=== PATIENT | male | born 1970 | race Caucasian/White ===

== ENCOUNTER 2017-06-19 15:59 | Emergency (ER) | payer MEDICAID ==
[2017-06-19 16:07] VITALS: PULSE 95; RESP 16; TEMP 99.2; O2SAT 95
--- NOTE | 2017-06-19 16:25 | C.PDOC ---
History Of Present Illness 46 YO male w/o significant PMHx come in f r evaluation of Left foot pain for past 5 days "after pushed some heavy object with my foot". Pt reports pain as aching over the side of left foot, worse with ambulation. Admits previous hx of left foot injury " more than 10 yrs ago". Otherwise, pt denies direct trauma or injury, foot deformity, skin changes, weakness, sensory or vascular deficit to Left foot. On triage HTN noted, pt denies previous hx of HTN, pt sts, " just drove 160 ml to get here in really bad weather". Otherwise, pt denies headache, dizziness, visual changes, focal deficits, CP, SOB, dyspnea, diaphoresis, palpitation, denies any other active complaints. Ambulate to ED for evaluation, not in nay apparent distress. Time Seen by Provider: 06/19/17 16:10 Chief Complaint (Nursing): Lower Extremity Problem/Injury History Per: Patient Past Medical History Reviewed: Historical Data, Nursing Documentation, Vital Signs Vital Signs: Last Vital Signs Temp 99.2 F 06/19/17 16:05 Pulse 95 H 06/19/17 16:05 Resp 16 06/19/17 16:05 BP 165/102 H 06/19/17 16:05 Pulse Ox 95 06/19/17 16:25 - Medical History PMH: No Chronic Diseases Surgical History: No Surg Hx Family History: States: No Known Family Hx - Social History Hx Tobacco Use: No Hx Alcohol Use: Yes Hx Substance Use: No - Immunization History Hx Tetanus Toxoid Vaccination: No Hx Influenza Vaccination: No Hx Pneumococcal Vaccination: No Review Of Systems Except As Marked, All Systems Reviewed And Found Negative. Constitutional: Negative for: Fever, Chills Eyes: Negative for: Vision Change Cardiovascular: Negative for: Chest Pain, Palpitations, Edema, Light Headedness Respiratory: Negative for: Cough, Shortness of Breath, SOB with Excertion, Wheezing Gastrointestinal: Negative for: Nausea, Vomiting Musculoskeletal: Positive for: Foot Pain Neurological: Negative for: Weakness, Numbness, Headache, Dizziness Physical Exam - Physical Exam Appears: Well, Non-toxic, No Acute Distress Skin: Normal Color, Warm, No Rash Eye(s): bilateral: PERRL Throat: No Erythema Neck: Supple Cardiovascular: Rhythm Regular, No Friction Rub, No Murmur, No JVD Respiratory: No Decreased Breath Sounds, No Accessory Muscle Use, No Stridor, No Wheezing Gastrointestinal/Abdominal: Soft, No Tenderness Back: No Vertebral Tenderness Extremity: Normal ROM (Left foot), Tenderness (mild tenderness over medial and lateral aspect left foot. No edmea, no erythema, no palpable deformity.), No Pedal Edema, No Calf Tenderness (left), Capillary Refill (less than 2sec to left foot), No Deformity, No Swelling Neurological/Psych: Oriented x3, Normal Speech, Cerebellar Signs, Normal Motor, Normal Sensation, Normal Reflexes ED Course And Treatment O2 Sat by Pulse Oximetry: 95 Pulse Ox Interpretation: Normal - Other Rad Letf foot X-Ray: Interpreted by Me, Viewed By Me Interpretation: (+)osteophite noted. no acute fx or dislocation Progress Note: On re-eval, pt is afebrile, hemodynamicaly stable. Non-toxic. Ambulatory in ED with stable gait. Neck: Supple, (-) JVD. Lungs: CTA B/L, BS equal B/L. CVS: (+)S1S2, reg. B/L LEs: no edema, left foot; exam c/w foot sprain/arthralgia. neuorlogicaly intact. Xray of foot review (-) acute fx or dislocation. Pt was advised about noted HTN. Was advised to repeat BP today and if high, start on given medication. Advised on foot F/U. ref. to F/u with PMD to repeat HTN and podiatry for further evaluation of left foot. return to Ed if any worsening or new changes. Disposition Counseled Patient/Family Regarding: Studies Performed, Diagnosis, Need For Followup, Rx Given - Disposition Referrals: [facility] [Outside] Podiatry Clinic [Outside] Disposition: HOME/ ROUTINE Disposition Time: 16:30 Condition: STABLE Additional Instructions: LIGHT DUTY TO LEFT FOOT RICE-REST, ICE, COMPRESSION, ELEVATION TAKE MEDICATION PRESCRIBED FOLLOW UP WITH MEDICAL RECORDS LIBRARY PROFESSOR IN 2-3 DAYS FOR RE-EVALUATION AT .PODIATRY CLINIC AT [facility] OR [facility] ON MONDAYS RETURN TO ED IF ANY WORSENING OR NEW CHANGES. Prescriptions: Hydrochlorothiazide [Microzide] 12.5 mg PO DAILY #14 cap Ibuprofen [Motrin Tab] 600 mg PO Q6 #20 tab traMADol [Ultram] 50 mg PO TID #7 tab Instructions: Foot Sprain (ED), Hypertension (ED) Forms: [employer] (Syriac) - Clinical Impression Clinical Impression: Foot sprain, Arthralgia, Hypertension
[2017-06-19 17:02] VITALS: BP 167/103
--- NOTE | 2017-06-19 17:04 | RAD ---
Left foot three views History: Pain. Comparison: None available. Findings: Curvilinear radiopaque density adjacent to the lateral aspect of the cuboid which may represent hypertrophic changes of an accessory ossicle. Clinical correlation to site of pain. Mild dorsal calcaneal spurring. If pain persists, consider MRI. Impression: Curvilinear radiopaque density adjacent to the lateral aspect of the cuboid which may represent hypertrophic changes of an accessory ossicle. Clinical correlation to site of pain. Mild dorsal calcaneal spurring. If pain persists, consider MRI.
== END 2017-06-19 17:09 | disposition home or self-care (01) ==
LOC: C.ER 15:59
DX: S93.602A Unspecified sprain of left foot, initial encounter (principal); X58.XXXA Exposure to other specified factors, initial encounter; M25.572 Pain in left ankle and joints of left foot; I10 Essential (primary) hypertension

== ENCOUNTER 2017-10-19 13:15 | Emergency (ER) | payer MEDICAID ==
--- NOTE | 2017-10-19 14:38 | C.PDOC ---
History Of Present Illness 47 year old male presents to the ER complaining of right knee pain, onset Tuesday. States he was trying to lose weight and exercise more, particularly with running and cycling activities. Reports recently he did 3 hours of running. Patient denies any lower leg pain or swelling. Denies trauma. Applying Bengay and hot water to the area. Time Seen by Provider: 10/19/17 14:29 Chief Complaint (Nursing): Lower Extremity Problem/Injury History Per: Patient History/Exam Limitations: no limitations Onset/Duration Of Symptoms: Days (x5) Current Symptoms Are (Timing): Still Present Past Medical History Reviewed: Historical Data, Nursing Documentation, Vital Signs Vital Signs: Last Vital Signs Temp 97.9 F 10/19/17 15:39 Pulse 72 10/19/17 15:39 Resp 18 10/19/17 15:39 BP 161/91 H 10/19/17 15:39 Pulse Ox 97 10/19/17 15:39 Surgical History: No Surg Hx Family History: States: No Known Family Hx - Social History Hx Tobacco Use: No Hx Alcohol Use: Yes Hx Substance Use: No - Immunization History Hx Tetanus Toxoid Vaccination: No Hx Influenza Vaccination: No Hx Pneumococcal Vaccination: No Review Of Systems Except As Marked, All Systems Reviewed And Found Negative. Musculoskeletal: Negative for: Other (Right knee pain) Skin: Negative for: Bruising, Other (swelling) Neurological: Negative for: Weakness, Numbness, Other (tingling) Physical Exam - Physical Exam Appears: Non-toxic, No Acute Distress Skin: Warm, Dry Head: Atraumatic, Normacephalic Eye(s): bilateral: Normal Inspection, EOMI Nose: Normal Oral Mucosa: Moist Neck: Normal ROM, Supple Chest: Symmetrical Respiratory: No Accessory Muscle Use, Other (speaking full sentences) Extremity: Normal ROM, Tenderness (to the distal right knee), No Calf Tenderness , No Deformity, No Swelling, Other ((+) mild erythema 3cm in diameter to the anterior area- pt notes its from the benajay and hot water) Extremity: Bilateral: Normal ROM Pulses: Left Dorsalis Pedis: Normal, Right Dorsalis Pedis: Normal Neurological/Psych: Oriented x3, Normal Speech, No Other (focal deficits) ED Course And Treatment O2 Sat by Pulse Oximetry: 98 (RA) Pulse Ox Interpretation: Normal Progress Note: Given 550 mg Naproxen in the ED. Knee brace applied by hvac controls technician. Discussed no XR at the time since trauma. Discussed with pt sign and sdymptoms for infection - pt notes "its not an infection." Will d/c with rx for Naproxen and Cephalexin- instructed to start abx in redness persists. Also discsused elevated BP, denies chest pain, headache , dizziness, no visual changes. Instructed to get repeat BP and discussed risks of untreated BP. Advised to follow up with PMD and ortho in 1-2 days. Disposition Counseled Patient/Family Regarding: Diagnosis, Need For Followup, Rx Given - Disposition Referrals: Bud Reeder III, MD [Staff Provider] - Disposition: HOME/ ROUTINE Disposition Time: 14:57 Condition: STABLE Additional Instructions: Rest and ice the area. Follow up with bone doctor in 1-2 days. Return to ER if symptoms persist or worsen. Prescriptions: Cephalexin [cephalexin] 500 mg PO TID #21 cap Naproxen [Naprosyn] 1 tab PO BID PRN #20 tab PRN Reason: Pain Instructions: Knee Pain (DC) Forms: [employer] Connect (Slovak) - POA Present On Arrival: None - Clinical Impression Clinical Impression: Knee pain - PA / RISK LEAD / Resident Statement MD/DO has reviewed & agrees with the documentation as recorded. - Scribe Statement The provider has reviewed the documentation as recorded by the Scribe (Leela Sheffield) All medical record entries made by the Scribe were at my direction and personally dictated by me. I have reviewed the chart and agree that the record accurately reflects my personal performance of the history, physical exam, medical decision making, and the department course for this patient. I have also personally directed, reviewed, and agree with the discharge instructions and disposition.
[2017-10-19] MEDS ORDERED: Naproxen 550 mg Tab PO STA (14:48)
[2017-10-19] MEDS ORDERED: Naproxen 550 mg Tab PO ONE (15:26)
[2017-10-19 15:40] VITALS: BP 161/91; PULSE 72; RESP 18; TEMP 97.9
[2017-10-21 15:07] VITALS: O2SAT 98
== END 2017-10-19 15:50 | disposition home or self-care (01) ==
LOC: C.ER 13:15
DX: M25.561 Pain in right knee (principal)